=== PATIENT | female | born 1990 | race Caucasian/White ===

== ENCOUNTER 2021-07-29 06:14 | Emergency (ER) | payer SELFPAY ==
--- NOTE | 2021-07-29 06:53 | ED EENT ---
History of Present Illness General Chief Complaint: Ear Problems Stated Complaint: L EAR PAIN Source: patient History of Present Illness Date Seen by Provider: July 29, 2021 Time Seen by Provider: 06:40 Initial Comments PT ARRIVES VIA POV FROM HOME C/O LEFT EAR PAIN SINCE LAST PM EAR FEELS SWOLLEN FEELS LIKE FLUID IS IN HER EAR, BUT NO ACTUAL DRAINAGE FROM EAR DECREASED HEARING FROM EAR TODAY NO FEVER NO URI SYMPTOMS NO HEADACHE NO OTHER SYMPTOMS NO HISTORY OF SIMILAR HAS NOT TAKEN ANYTHING FOR APIN PCP: PB Allergies and Home Medications Patient Home Medication List Home Medication List Reviewed: Yes Ciprofloxacin HCl/Dexameth (Ciprodex Otic Suspension) 0.3 %-0.1 % Soln, 7.5 ML OT BID Prescribed by: SHAKIRA MATTHEWS on 07/29/21 0658 Review of Systems Review of Systems Constitutional: no symptoms reported; No fever Eyes: No Symptoms Reported Ears: See HPI; Denies Dizziness; Pain; Denies Bloody Discharge, Denies Clear Discharge, Denies Purulent Discharge, Denies Serosanguinous Discharge, Denies Previous Injury Nose: no symptoms reported; denies congestion Mouth: no symptoms reported Throat: no symptoms reported; denies pain Respiratory: no symptoms reported Cardiovascular: no symptoms reported Gastrointestinal: no symptoms reported; No nausea, No vomiting Musculoskeletal: no symptoms reported Skin: no symptoms reported; No rash Neurological: No Symptoms Reported; Denies Headache Hematologic/Lymphatic: No Symptoms Reported Immunological/Allergic: no symptoms reported Past Ywnjjoo-Uyivbt-Flmjyp Hx Patient Social History Tobacco Use?: No Substance use?: No Alcohol Use?: No Immunizations Up To Date Influenza Vaccine Up-to-Date: Yes; Up-to-Date Past Medical History Surgeries: No Respiratory: No Cardiac: No Neurological: No Genitourinary: No Gastrointestinal: No Musculoskeletal: No Endocrine: No HEENT: No Cancer: No Psychosocial: No Integumentary: No Blood Disorders: No Physical Exam Vital Signs Vital Signs - First Documented 07/29/21 06:38 Temp 36.0 Pulse 87 Resp 16 B/P (MAP) 116/83 (94) Pulse Ox 98 O2 Delivery Room Air Height, Weight, BMI Height: '" Weight: lbs. oz. kg; BMI Method: General Appearance: WD/WN, no apparent distress Eyes: bilateral eye normal inspection, bilateral eye PERRL, bilateral eye EOMI Ears: right ear auricle normal, right ear canal normal, right ear TM normal; left ear other (LEFT EAC WITH INFLAMMATION AND MILD EDEMA AND MILD ADHERENT EXUDATE. LEFT TM IS CLEAR. 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 Decision time for Depature: 06:57 Referrals: [facility] (PCP/Family) Primary Care Physician Patient Instructions: How to Use Ear Drops, Outer Ear Infection (DC) Add. Discharge Instructions: TYLENOL AND MOTRIN NEEDED FOR PAIN FOLLOW UP WITH [facility] IN 3-4 DAYS IF NO BETTER All discharge instructions reviewed with patient and/or family. Voiced understanding. Scripts Ciprofloxacin HCl/Dexameth (Ciprodex Otic Suspension) 0.3 %-0.1 % Soln 7.5 ML OT BID for 7 Days, #1 EA Prov: SHAKIRA MATTHEWS DO 07/29/21 SHAKIRA MATTHEWS DO July 29, 2021 06:53
[2021-07-29] MEDS ORDERED: NF-CIPDEC OT (06:58)
[2021-07-29 07:01] VITALS: BP 116/83
== END 2021-07-29 07:02 | disposition home or self-care (01) ==
LOC: ER 06:16
DX: H60.92 Unspecified otitis externa, left ear (principal)
CPT/HCPCS: 99282